=== PATIENT | male | born 1945 | race Caucasian/White ===

== ENCOUNTER 2020-05-16 11:09 | Emergency (ER) | payer MEDICARE, OTHER ==
[~2020-05-16 11:09] MED LIST: ZOFRAN ODT 4 MG4 MG PO
[2020-05-16 12:15] LABS: HEMOGLOBIN 14.1 gm/dl (14.0-17.5); RED BLOOD COUNT 4.5 M/UL (4.20-5.50); WHITE BLOOD COUNT 8.8 K/UL (4.5-11.0)
[2020-05-16 12:30] LABS: BUN/CREATININE RATIO 14 (0-10)
[2020-05-16] MEDS ORDERED: HYDROCODONE-AC1 EACH PO (14:04)
[2020-05-16] MEDS ORDERED: ZOFRAN ODT 4 MG4 MG PO (14:04)
[2020-05-16] MEDS ORDERED: KEFLEX CAP 500500 MG PO (14:07)
[2020-05-17] MEDS ORDERED: PRINIVIL20 MG PO (12:26)
[2020-05-17] MEDS ORDERED: DICYCLOMINE HCL10 MG PO (12:26)
[2020-05-17] MEDS ORDERED: VITAMIN D350 MC3 PO (12:27)
[2020-05-17] MEDS ORDERED: DIPHENOXYLATE-1 EACH PO (12:27)
[2020-05-17] MEDS ORDERED: TYLENOL PM EX-1 EACH PO (12:28)
[2020-05-17] MEDS ORDERED: FISH OIL 1,2001 EAC7 PO (12:28)
[2020-05-17] MEDS ORDERED: VITAMIN B-121000 MCG PO (12:29)
== END 2020-05-16 14:15 | disposition home or self-care (01) ==
LOC: ER1 11:09 → CDU 13:03 → ER1 13:03
PROVIDERS: Emergency Medicine
DX: S68.620A Partial traumatic transphalangeal amputation of right index finger, initial encounter (principal); S68.622A Partial traumatic transphalangeal amputation of right middle finger, initial encounter; S68.624A Partial traumatic transphalangeal amputation of right ring finger, initial encounter; I10 Essential (primary) hypertension; Z85.038 Personal history of other malignant neoplasm of large intestine; Z79.899 Other long term (current) drug therapy; Z88.5 Allergy status to narcotic agent; W29.8XXA Contact with other powered hand tools and household machinery, initial encounter; Y92.009 Unspecified place in unspecified non-institutional (private) residence as the place of occurrence of the external cause; Z20.822 Contact with and (suspected) exposure to COVID-19
CPT/HCPCS: 73130; 80048; 85025; 85610; 85730; 87635; 90471; 96365; 96375; 96376; 99283; J0690; J2405; J3010; J7030

== ENCOUNTER → 2020-05-17 | Day surgery (SDC) | payer MEDICARE, OTHER ==
[~2020-05-17] VITALS: Ht 167.6 cm; Wt 77.6 kg
[~2020-05-17] MED LIST changes: +DICYCLOMINE HCL10 MG PO; +DIPHENOXYLATE-1 EACH PO; +FISH OIL 1,2001 EAC7 PO; +HYDROCODONE-AC1 EACH PO; +KEFLEX CAP 500500 MG PO; +PRINIVIL20 MG PO; +TYLENOL PM EX-1 EACH PO; +VITAMIN B-121000 MCG PO; +VITAMIN D350 MC3 PO
== END | disposition home or self-care (01) ==
LOC: OR 11:41
DX: S61.314A Laceration without foreign body of right ring finger with damage to nail, initial encounter (principal); S61.312A Laceration without foreign body of right middle finger with damage to nail, initial encounter; S61.310A Laceration without foreign body of right index finger with damage to nail, initial encounter; I10 Essential (primary) hypertension; M19.90 Unspecified osteoarthritis, unspecified site; E66.01 Morbid (severe) obesity due to excess calories; F41.9 Anxiety disorder, unspecified; Z85.038 Personal history of other malignant neoplasm of large intestine; Z90.49 Acquired absence of other specified parts of digestive tract; Z88.8 Allergy status to other drugs, medicaments and biological substances; Z79.899 Other long term (current) drug therapy; W27.0XXA Contact with workbench tool, initial encounter
CPT/HCPCS: J0690; J1100; J2001; J2704; J2795; J7120

== ENCOUNTER 2021-02-05 16:31 | Emergency (ER) | payer MEDICARE, OTHER | END 2021-02-05 17:16 | disposition home or self-care (01) | LOC: ER1 16:31 | DX: R05.9 Cough, unspecified (principal); Z20.822 Contact with and (suspected) exposure to COVID-19; I10 Essential (primary) hypertension; Z88.8 Allergy status to other drugs, medicaments and biological substances | CPT/HCPCS: 99283; U0002 ==

== ENCOUNTER → 2021-04-07 | Outpatient (CLI) | payer MEDICARE, OTHER | LOC: RAD 08:43 | DX: R13.10 Dysphagia, unspecified (principal); K44.9 Diaphragmatic hernia without obstruction or gangrene | CPT/HCPCS: 74221 ==

== ENCOUNTER → 2021-11-23 | Outpatient (CLI) | payer MEDICARE, OTHER | LOC: KOH-I 13:08 | DX: R05.9 Cough, unspecified (principal) | CPT/HCPCS: 71046 ==

== ENCOUNTER → 2021-12-06 | Outpatient (CLI) | payer MEDICARE, OTHER | LOC: EXRD 08:40 | DX: Z13.6 Encounter for screening for cardiovascular disorders (principal) | CPT/HCPCS: 76706 ==